=== PATIENT | male | born 1985 | race Asian ===

== ENCOUNTER 2023-01-19 08:58 | Outpatient (REF) | payer MEDICAID, OTHER, SELFPAY ==
--- NOTE | ~2023-01-19 | XR_ITS ---
EXAMINATION: XR CHEST CLINICAL INFORMATION: Positive TB blood test COMPARISON: None available. TECHNIQUE: 2 views of the chest were obtained. FINDINGS: No significant abnormality is noted involving the heart, lungs, mediastinum, bony thorax or soft tissues. XR/XR chest 2V IMPRESSION: Unremarkable chest examination.
== END 2023-01-19 08:59 | disposition home or self-care (01) ==
LOC: HO.HHCX 08:58
PROVIDERS: Visit Provider Student in an Organized Health Care Education/Training Program
DX: R76.12 Nonspecific reaction to cell mediated immunity measurement of gamma interferon antigen response without active tuberculosis (principal)
CPT/HCPCS: 71046